=== PATIENT | male | born 1950 | race Caucasian/White ===

== ENCOUNTER 2016-08-19 12:04 | Day surgery (SDC) | payer BC ==
[~2016-08-19 12:04] MED LIST: ACETAMINOPHEN 500 MG TAB PO ONE; CLINDAMYCIN 900 MG/DEXTROSE 50 ML IV ONE; OXYCODONE/APAP 5/325 TAB PO PRN; PREGABALIN 75 MG CAP PO ONE
[2016-08-19] MEDS ORDERED: ACETAMINOPHEN 500 MG TAB ONE (12:24)
[2016-08-19] MEDS ORDERED: PREGABALIN 75 MG CAP ONE (12:25)
[2016-08-19] MEDS ORDERED: CLINDAMYCIN 900 MG/DEXTROSE/50 ML BAG IV ONE (12:26)
[2016-08-19] MEDS ORDERED: LR 1,000 ML IV ONE (12:27)
[2016-08-19] MEDS ORDERED: LIDOCAINE 1% 5 ML SDV ID PRN (12:27)
[2016-08-19] MEDS ORDERED: BUPIVACAINE/EPI 0.25% 30 ML SDV ONE (15:37)
[2016-08-19] MEDS ORDERED: SKIN ADHESIVE (DERMABOND) 1 EACH TP ONE (15:37)
[2016-08-19] MEDS ORDERED: fentaNYL 250 MCG/5 ML INJ ONE (16:32)
[2016-08-19] MEDS ORDERED: PROPOFOL/EMULSION 500 MG/50 ML BOTTLE IV ONE (16:32)
[2016-08-19] MEDS ORDERED: ROCURONIUM 50 MG/5 ML VIAL ONE (16:33)
[2016-08-19] MEDS ORDERED: METOCLOPRAMIDE 10 MG/2 ML VIAL ONE (16:33)
[2016-08-19] MEDS ORDERED: DEXAMETHASONE 4 MG/ML VIAL ONE (16:33)
[2016-08-19] MEDS ORDERED: LIDOCAINE 2% 100 MG/5 ML SYR IVP ONE (16:34)
[2016-08-19] MEDS ORDERED: MIDAZOLAM 2 MG/2 ML VIAL ONE (16:35)
[2016-08-19] MEDS ORDERED: PROPOFOL 200 MG/20 ML VIAL ONE (18:11)
== END 2016-08-19 21:00 | disposition home or self-care (01) ==
LOC: FSGY 12:04
PROVIDERS: ATTEND Orthopaedic Surgery Sports Medicine
PROC: 0SBB0ZX Excision of Left Hip Joint, Open Approach, Diagnostic (ICD-10-PCS; principal; 2016-08-19 13:45)
PROC: 0KQP0ZZ Repair Left Hip Muscle, Open Approach (ICD-10-PCS; principal; 2016-08-19 13:45)
PROC: 0QB70ZZ Excision of Left Upper Femur, Open Approach (ICD-10-PCS; principal; 2016-08-19 13:45)
DX: S76.012A Strain of muscle, fascia and tendon of left hip, initial encounter (principal); M25.852 Other specified joint disorders, left hip; M76.892 Other specified enthesopathies of left lower limb, excluding foot
CPT/HCPCS: C1713; J1100; J2001; J2250; J2704; J2765; J3010